=== PATIENT | female | born 1960 | race Caucasian/White ===

== ENCOUNTER 2018-10-12 18:57 | Emergency (ER) | payer SELFPAY ==
[~2018-10-12] VITALS: Ht 165.1 cm; Wt 76.2 kg
[2018-10-12 19:02] VITALS: BP 158/82
== END 2018-10-12 22:38 | disposition left against medical advice (07) ==
LOC: ER 18:57
DX: R07.89 Other chest pain (principal); Z53.21 Procedure and treatment not carried out due to patient leaving prior to being seen by health care provider

== ENCOUNTER 2020-12-12 10:07 | Emergency (ER) | payer SELFPAY ==
[~2020-12-12] VITALS: Ht 152.4 cm; Wt 65.0 kg
[2020-12-12] MEDS ORDERED: IBUPROFEN 600MG TABLET PO ONE (11:00)
[2020-12-12] MEDS ORDERED: IBUP-2029 MT (11:29)
[2020-12-12 12:06] VITALS: BP 156/95
== END 2020-12-12 12:07 | disposition home or self-care (01) ==
LOC: ER 10:07
DX: S90.31XA Contusion of right foot, initial encounter (principal); V03.90XA Pedestrian on foot injured in collision with car, pick-up truck or van, unspecified whether traffic or nontraffic accident, initial encounter; Y93.89 Activity, other specified; Y92.488 Other paved roadways as the place of occurrence of the external cause
CPT/HCPCS: 73630; 99283